=== PATIENT | female | born 1975 | race Caucasian/White ===

== ENCOUNTER → 2016-06-12 | Outpatient (CLI) | payer BC ==
[~2016-06-12] MED LIST: BCPILLS PO; OXYC-57 PO; PRENTAB26 PO
[2016-06-12 10:20] LABS: BASO % 0.4 %; BASO ABS # 0.02 K/uL (0-0.2); COMPLETE YES; EOS % 0.9 %; HEMATOCRIT 36.3 % (37-47); IG% 0.4 %; LYMPH % 27.8 %; LYMPH ABS # 1.47 K/uL (1.2-3.4); MEAN CELL VOLUME 87.7 fL (80-100); MEAN CORPUSCULAR HEMOGLOBIN 30.2 pg (25-34); MEAN CORPUSCULAR HGB CONC 34.4 g/dl (32-36); MEAN PLATELET VOLUME 10.3 fL (7.4-10.4); MONO % 9.1 %; NEUT % 61.4 %; PLATELET COUNT 301 K/uL (130-400); RED BLOOD COUNT 4.14 M/uL (4.2-5.4); WHITE BLOOD COUNT 5.29 K/uL (4.8-10.8)
[2016-06-12 10:52] LABS: INSULIN FASTING 4.1 mU/L (3-25); INSULIN LOG 0.6128
[2016-06-12 10:55] LABS: PROGESTERONE 0.29 ng/mL; PROLACTIN 13.65 ng/mL
[2016-06-12 12:02] LABS: THYROID STIMULATING HORMONE 1.91 uIu/ml (0.300-4.500)
[2016-06-12 13:29] LABS: CALCULATED INSULIN SENSITIVITY 0.389; GLUCOSE LOG 1.959
== END | disposition home or self-care (01) ==
LOC: C.LAB1850 08:56
PROVIDERS: ATTEND Obstetrics & Gynecology
DX: N93.9 Abnormal uterine and vaginal bleeding, unspecified (principal)

== ENCOUNTER → 2016-08-14 | Day surgery (SDC) | payer BC ==
[2016-07-30 08:19] VITALS: Ht 157.5 cm; Wt 55.9 kg
[~2016-08-14] VITALS: Ht 157.5 cm; Wt 55.9 kg
[~2016-08-14] MED LIST changes: +ATROPINE SULFATE 0.1 MG/ML 5ML SYR IV PRN; +DEXAMETHASONE SOD INJ 4 MG/ML VIAL ONE; +EpHEDrine SULFATE INJ 50 MG/ML AMP IV PRN; +FENTANYL CITRATE INJ 50 MCG/1 ML 2 ML VIAL IV PRN; +FENTANYL CITRATE INJ 50 MCG/1 ML 2 ML VIAL ONE; +IBUPROFEN 600 MG TAB PO PRN; +KETOROLAC TROMETHAMINE 30 MG/ML VIAL IV. PRN; +KETOROLAC TROMETHAMINE 30 MG/ML VIAL ONE; +LACTATED RINGER'S 1000ML 1,000 ML IV SCH; +LIDOCAINE HCL 2% 2 ML VIAL (20MG/ML) ONE; +METOCLOPRAMIDE HCL INJ 5 MG/ML 2 ML VIAL IV PRN; +MIDAZOLAM HCL 1 MG/ML 2ML VIAL ONE; +ONDANSETRON INJ 2 MG/ML 2 ML VIAL IV PRN; +ONDANSETRON INJ 2 MG/ML 2 ML VIAL ONE; +OXYCODONE/ACETAMINOPHEN 5-325 TAB PO PRN; -PRENTAB26 PO; +PROPOFOL IV EMULSION 10 MG/ML 20 ML VIAL IV ONE; +SCOPOLAMINE 1.5 MG TDSY TD ONE; +SODIUM CHLORIDE 0.9% 1000ML 1,000 ML IV SCH
--- NOTE | 2016-08-14 07:09 | History & Physical Bridge - [place] ---
H&P Re-Evaluation Bridge Note: I have examined the patient, reviewed the History & Physical and in the interval since the performance of the History & Physical I have noted the following changes of clinical significance: No changes noted
--- NOTE | 2016-08-14 07:53 | Discharge Instructions-SurgCtr ---
Discharge Instructions Date of Service Aug 14, 2016. Visit Reason for Visit: Abnormal Uterine Bleeding Discharge Discharge Diagnosis / Problem: AUB, Hysteroscopy / D&C Discharge Goals Goal(s): Specific goals Activity Recommendations Activity Limitations: resume your previous activity Anesthesia . Post Anesthesia Instructions: If you have had General Anesthesia or IV Sedation: * Do not drive today. * Resume driving when surgeon permits. * Do not make important decisions or sign legal documents today. * Call surgeon for: 1. Temperature elevations greater than 101 degrees F. 2. Uncontrollable pain. 3. Excessive bleeding. 4. Persistent nausea and vomiting. 5. Medication intolerance (nausea, vomiting or rash). * For nausea and vomiting use only clear liquids such as: tea, soda, bouillon until nausea subsides, then gradually increase diet as tolerated. * If you have any concerns or questions, call your surgeon's office. If physician is unavailable and it is an emergency, call 911 or go to the nearest emergency room. . Instructions / Follow-Up Instructions / Follow-Up ACTIVITY RECOMMENDATIONS: * Avoid tampons, douching, hot tubs, pools, and intercourse until bleeding has stopped. * May shower as usual. * No strenuous activity for 24-48 hours. After 24-48 hours, you may do anything you feel like doing (driving and sports are okay). SPECIAL CARE INSTRUCTIONS: Special Diet: * Mild nausea may occur in the immediate post-operative period. * Take clear liquids such as tea, cola or bouillon until all nausea has subsided; you may then resume your normal diet. Special Care: * Light bleeding and vaginal spotting can last from a few days to 3-4 weeks. Call your doctor if bleeding becomes heavier than the heaviest part of your period. * Check your temperature twice a day for one week. If it goes above 100.4 degrees Fahrenheit (38.0 Celsius), notify your doctor. * Call your doctor's office for an appointment for 6 weeks after your surgery. FOLLOW-UP VISIT: Call your doctor's office for an appointment for 6 weeks after your surgery. Diet Recommendations Home Diet: resume previous diet Pending Studies Studies pending at discharge: no Medical Emergencies . Who to Call and When: Medical Emergencies: If at any time you feel your situation is an emergency, please call 911 immediately. . Non-Emergent Contact Non-Emergency issues call your: Primary Care Provider . . "Provider Documentation" section prepared by Rebekah Stewart.
--- NOTE | 2016-08-14 09:28 | [facility] Post Operative Brief Note ---
Immediate Operative Summary Operative Date Aug 14, 2016. Pre-Operative Diagnosis Abnormal Uterine Bleeding Post-Operative Diagnosis Same Procedure(s) Performed Dilatation And Curettage, Hysteroscopy, Myomectomy Surgeon Dr. Stewart Power Distribution Engineer Surgeon(s) None Estimated Blood Loss 100 mL Findings Cavity with ostia seen bilaterally, filled by solitary round smooth mass which revealed a fibroid white fluffy material when dissected with Myosure. Cavity length 8cm. Specimens A. Myosure Chips Complication(s) None Disposition Recovery Room / PACU
--- NOTE | 2016-08-14 09:42 | OPERATIVE REPORT ---
DATE OF OPERATION: 08/14/2016 PREOPERATIVE DIAGNOSIS: Abnormal uterine bleeding and intracavitary mass. POSTOPERATIVE DIAGNOSIS: Same. PROCEDURE: D\T\C hysteroscopy and myomectomy. SURGEON: Dr. Stewart. ASSIST: None. ESTIMATED BLOOD LOSS: 100 cc. FINDINGS: Cavity with ostea seen bilaterally filled by solitary, round, smooth mass which revealed a fibrous white fluffy material when dissected with MyoSure. Cavity length 8 cm. DEFICIT: Nominally 1600 cc of normal saline; however, a large amount of saline solution spilled out of the system onto the operating room floor and soaked into the pant legs of the surgeon. Estimate total fluid loss into the patient truly around or less than 1 liter. SPECIMEN: MyoSure chips which we anticipate will be fibroid. COMPLICATIONS: None. DISPOSITION: Stable in the recovery room. DESCRIPTION: Becka Rosenbaum was placed on the table in the dorsal lithotomy position with candy cane stirrups. Prepped and draped in standard sterile fashion and a hard time out was taken prior to proceeding. Bimanual exam was done and the bladder was emptied of urine for 100 cc of clear yellow via straight catheterization. Specula were introduced. The anterior lip of the cervix was grasped with a single tooth tenaculum. The uterus sounded to 8 cm. The cervix was serially dilated to allow passage of the hysteroscope which was then introduced. The endometrial cavity was identified by seeing both ostea; however, the cavity was almost entirely occupied by a solitary large, round, smooth mass. Attempt was made to grasp this with a polyp forceps which was unsuccessful and the mass felt very firm and crunchy or calcified. The MyoSure was then set up and introduced to the cavity and used to gradually dissect away this mass which reveals a fluffy white internal texture likely consistent with a benign fibroid. Once the mass had been completely resected down to the smooth wall the attachment point of the mass having been clearly identified at this point as the fundal and anterior aspect to the interior uterus the cavity was restored to normal anatomy with ostea visualized bilaterally. All instruments were withdrawn and the patient was transferred to the recovery room in stable condition. I attest to the content of the Intraoperative Record and any orders documented therein. Any exceptio ns are noted below.
[2016-08-14 09:45] VITALS: TEMP 36.5
--- NOTE | 2016-08-14 09:52 | Anesthesia Progress Nt - [facility] ---
Anesthesia Post Op Note Date & Time Aug 14, 2016 at 09:52 Vital Signs Pain Intensity: 0 Vital Signs Past 12 Hours Date Time Temp Pulse Resp B/P Pulse Ox O2 Delivery O2 Flow Rate FiO2 08/14/16 09:36 112/74 08/14/16 09:34 63 13 08/14/16 09:34 63 13 100 08/14/16 09:33 71 18 99 08/14/16 09:33 71 18 08/14/16 09:32 36.5 70 16 112/70 99 Room Air 08/14/16 09:31 112/70 08/14/16 09:28 66 15 100 08/14/16 09:28 68 15 08/14/16 09:26 105/68 08/14/16 09:23 71 16 100 08/14/16 09:23 71 16 08/14/16 09:21 106/71 08/14/16 09:18 71 3 08/14/16 09:18 70 3 100 08/14/16 09:17 68 6 100 08/14/16 09:17 69 6 08/14/16 09:16 113/69 08/14/16 09:12 83 33 08/14/16 09:12 83 33 100 08/14/16 09:11 118/77 08/14/16 09:08 124/90 08/14/16 09:07 102 08/14/16 09:07 36.4 102 20 124/90 100 Diffusion Mask 6 08/14/16 09:07 102 100 08/14/16 07:05 74 133/84 97 Room Air 08/14/16 06:51 36.7 106 16 141/93 100 Room Air Notes Mental Status: alert / awake / arousable, participated in evaluation Pt Amnestic to Procedure: Yes Nausea / Vomiting: adequately controlled Pain: adequately controlled Airway Patency, RR, SpO2: stable & adequate BP & HR: stable & adequate Hydration State: stable & adequate Anesthetic Complications: no major complications apparent
[2016-08-14 10:12] VITALS: BP 105/69; PULSE 84; O2SAT 100
== END | disposition home or self-care (01) ==
LOC: X.SURG 06:41
PROVIDERS: ATTEND Obstetrics & Gynecology
DX: D25.9 Leiomyoma of uterus, unspecified (principal); G43.909 Migraine, unspecified, not intractable, without status migrainosus; Z88.2 Allergy status to sulfonamides; Z88.1 Allergy status to other antibiotic agents

== ENCOUNTER → 2017-01-23 | Outpatient (CLI) | payer BC ==
[~2017-01-23] MED LIST changes: -ATROPINE SULFATE 0.1 MG/ML 5ML SYR IV PRN; -DEXAMETHASONE SOD INJ 4 MG/ML VIAL ONE; -EpHEDrine SULFATE INJ 50 MG/ML AMP IV PRN; -FENTANYL CITRATE INJ 50 MCG/1 ML 2 ML VIAL IV PRN; -FENTANYL CITRATE INJ 50 MCG/1 ML 2 ML VIAL ONE; -IBUPROFEN 600 MG TAB PO PRN; -KETOROLAC TROMETHAMINE 30 MG/ML VIAL IV. PRN; -KETOROLAC TROMETHAMINE 30 MG/ML VIAL ONE; -LACTATED RINGER'S 1000ML 1,000 ML IV SCH; -LIDOCAINE HCL 2% 2 ML VIAL (20MG/ML) ONE; -METOCLOPRAMIDE HCL INJ 5 MG/ML 2 ML VIAL IV PRN; -MIDAZOLAM HCL 1 MG/ML 2ML VIAL ONE; -ONDANSETRON INJ 2 MG/ML 2 ML VIAL IV PRN; -ONDANSETRON INJ 2 MG/ML 2 ML VIAL ONE; -OXYCODONE/ACETAMINOPHEN 5-325 TAB PO PRN; -PROPOFOL IV EMULSION 10 MG/ML 20 ML VIAL IV ONE; -SCOPOLAMINE 1.5 MG TDSY TD ONE; -SODIUM CHLORIDE 0.9% 1000ML 1,000 ML IV SCH
--- NOTE | 2017-01-26 13:48 | MAMMOGRAPHY REPORT ---
BILATERAL DIGITAL SCREENING MAMMOGRAM TOMOSYNTHESIS WITH CAD: 01/23/2017 CLINICAL HISTORY: Routine screening. Patient has no complaints. TECHNIQUE: Breast tomosynthesis in addition to standard 2D mammography was performed. Current study was also evaluated with a Computer Aided Detection (CAD) system. COMPARISON: Comparison is made to exam dated: 01/10/2016 mammogram - [facility]. BREAST COMPOSITION: The tissue of both breasts is extremely dense, which lowers the sensitivity of m ammography. FINDINGS: No suspicious masses, calcifications, or areas of architectural distortion are noted in ei ther breast. There has been no significant interval change compared to prior exams. IMPRESSION: ACR BI-RADS CATEGORY 1: NEGATIVE There is no mammographic evidence of malignancy. A 1 year screening mammogram is recommended. The pa tient will receive written notification of the results. Approximately 10% of breast cancers are not detected with mammography. A negative mammographic report should not delay biopsy if a clinically suggestive mass is present. Crystal Leach M.D. ah/:01/23/2017 16:26:43 Multimedia Authoring Specialist: Robyn AZAR(Demetria)(Dawna)([place]), [facility] letter sent: Normal 1/2 BI-RADS Code: ACR BI-RADS Category 1: Negative
== END | disposition home or self-care (01) ==
LOC: C.MAMM 14:08
PROVIDERS: ATTEND Obstetrics & Gynecology
DX: Z12.31 Encounter for screening mammogram for malignant neoplasm of breast (principal)

== ENCOUNTER 2017-02-13 08:53 | Observation (INO) | payer BC ==
[2017-01-20 13:01] VITALS: BMI 22.0
--- NOTE | 2017-01-20 13:26 | PAT Medication Instructions ---
Service Date Jan 20, 2017. Current Home Medication List Control Pills ( Control Pills), 1 TAB PO QAM Medication Instructions For Your Scheduled Surgery - Take the following medications the morning of surgery with a sip of water: Control Pills ( Control Pills), 1 TAB PO QAM If you have any questions please call us at [phone] or [phone] or [phone]
[~2017-02-13] VITALS: Ht 157.5 cm; Wt 55.5 kg
[2017-02-13] VITALS (7 sets, daily range): BP systolic 114–154; BP diastolic 68–83; PULSE 69–101; TEMP 36.3–36.9; O2SAT 98–100; Ht 157.5 cm; Wt 55.5 kg
[~2017-02-13 08:53] MED LIST changes: +CEFAZOLIN 2000 MG/60 ML D5W 50 ML IV SCH; +LACTATED RINGER'S 1000ML 1,000 ML IV SCH; -OXYC-57 PO; +SCOPOLAMINE 1.5 MG TDSY TD SCH
[2017-02-13] MEDS ORDERED: MIDAZOLAM HCL 1 MG/ML 2ML VIAL ONE (09:24)
[2017-02-13] MEDS ORDERED: HYDROmorphone INJ 2 MG/ML SYR/VIAL ONE (09:24)
[2017-02-13] MEDS ORDERED: FENTANYL CITRATE INJ 50 MCG/1 ML 2 ML VIAL ONE (09:24)
[2017-02-13] MEDS ORDERED: ATROPINE SULFATE 0.1 MG/ML 5ML SYR IV PRN (10:30)
[2017-02-13] MEDS ORDERED: PROMETHAZINE HCL INJ 12.5 MG in SODIUM CHLORIDE 0.9% 50ML 50 ML IV PRN ×2 (10:30→12:45)
[2017-02-13] MEDS ORDERED: EpHEDrine SULFATE INJ 50 MG/ML AMP IV PRN (10:30)
[2017-02-13] MEDS ORDERED: HYDROmorphone INJ 1 MG/ML SYR IV PRN (10:30)
[2017-02-13] MEDS ORDERED: ONDANSETRON INJ 2 MG/ML 2 ML VIAL IV PRN ×2 (10:30→12:45)
[2017-02-13] MEDS ORDERED: METHYLENE BLUE 0.5% 10 ML VIAL ONE (10:43)
[2017-02-13] MEDS ORDERED: DEXAMETHASONE SOD INJ 4 MG/ML VIAL ONE (12:30)
[2017-02-13] MEDS ORDERED: DiphenhydrAMINE HCL 50 MG/ML VIAL ONE (12:30)
[2017-02-13] MEDS ORDERED: ONDANSETRON INJ 2 MG/ML 2 ML VIAL ONE (12:30)
[2017-02-13] MEDS ORDERED: METOCLOPRAMIDE HCL INJ 5 MG/ML 2 ML VIAL ONE (12:30)
[2017-02-13] MEDS ORDERED: GLYCOPYRROLATE INJ 0.2 MG/ML VIAL ONE (12:30)
[2017-02-13] MEDS ORDERED: PROPOFOL IV EMULSION 10 MG/ML 20 ML VIAL IV ONE (12:30)
[2017-02-13] MEDS ORDERED: LARYING-O-JET KIT (LTA) ONE ×2 (12:30)
[2017-02-13] MEDS ORDERED: ROCURONIUM BROMIDE 10 MG/ML 5 ML VIAL IV ONE (12:30)
[2017-02-13] MEDS ORDERED: LIDOCAINE HCL 2% 2 ML VIAL (20MG/ML) ONE (12:30)
[2017-02-13] MEDS ORDERED: NEOSTIGMINE METHYLSULFATE 5 MG/5 ML SYR ONE (12:30)
[2017-02-13] MEDS ORDERED: LACTATED RINGER'S 1000ML 1,000 ML IV SCH (12:44)
--- NOTE | 2017-02-13 12:44 | [facility] Post Operative Brief Note ---
Immediate Operative Summary Operative Date Feb 13, 2017. Pre-Operative Diagnosis Menorrhagia, fibroids Post-Operative Diagnosis Same as preop Procedure(s) Performed Total Laparoscopic Hysterectomy Bilateral Salpingectomy Robot Asisst; Cystoscopy Surgeon Dr. Stewart Kraft Digester Operator Surgeon(s) None Estimated Blood Loss 20 ML Findings Uterus distorted by multiple 2-3cm fibroids, tubes and ovaries normal bilaterally Specimens A. Cervix, Uterus, Bilateral Fallopian Tubes Complication(s) None Disposition Recovery Room / PACU
[2017-02-13] MEDS ORDERED: PROMETHAZINE HCL INJ 25 MG in SODIUM CHLORIDE 0.9% 50ML 50 ML IV PRN (12:45)
[2017-02-13] MEDS ORDERED: MEPERIDINE HCL 50 MG/ML CARP IV PRN ×2 (12:45)
[2017-02-13] MEDS ORDERED: IBUPROFEN 600 MG TAB PO PRN (12:45)
[2017-02-13] MEDS ORDERED: OXYCODONE/ACETAMINOPHEN 5-325 TAB PO PRN ×2 (12:45)
[2017-02-13] MEDS ORDERED: KETOROLAC TROMETHAMINE 30 MG/ML VIAL IV. PRN (12:45)
[2017-02-13] MEDS ORDERED: ACETAMINOPHEN 325 MG TAB PO PRN (12:45)
[2017-02-13] MEDS ORDERED: OXYC-57 PO (12:47)
--- NOTE | 2017-02-13 12:48 | Discharge Instructions ---
Discharge Instructions Date of Service Feb 13, 2017. Visit Reason for Visit: Menorrhagia, Fibroids Discharge Discharge Diagnosis / Problem: Hysterectomy Discharge Goals Goal(s): Specific goals Activity Recommendations Activity Limitations: per Instructions/Follow-up section Anesthesia . Post Anesthesia Instructions: If you have had General Anesthesia or IV Sedation: * Do not drive today. * Resume driving when surgeon permits. * Do not make important decisions or sign legal documents today. * Call surgeon for: 1. Temperature elevations greater than 101 degrees F. 2. Uncontrollable pain. 3. Excessive bleeding. 4. Persistent nausea and vomiting. 5. Medication intolerance (nausea, vomiting or rash). * For nausea and vomiting use only clear liquids such as: tea, soda, bouillon until nausea subsides, then gradually increase diet as tolerated. * If you have any concerns or questions, call your surgeon's office. If physician is unavailable and it is an emergency, call 911 or go to the nearest emergency room. . Instructions / Follow-Up Instructions / Follow-Up POST OPERATIVE: BOWEL FUNCTION/MEDICATIONS: 1. Constipation pain and discomfort are the most common complaints 5-7 days after surgery. Points 2-6 address the things that can help. 2. Chewing gum can help stimulate the gut and help improve digestion and motility. 3. Milk of Magnesia 1-2 times per day until return of bowel function. 4. Colace is a stool softener that helps. Taking this 2-3 times per day until bowel function returns to normal is highly recommended. 5. Dulcolax is a laxative that may be used if several days have passed without a bowel movement. Alternatively Miralax may be used daily instead. 6. Drink plenty of fluids as this will also reduce constipation. 7. Narcotic pain medications will be prescribed by your physician. They are safe to use and we encourage you to use them. If you are not allergic, ibuprofen will also be prescribed. Many patients will be able to transition off of the narcotic medications to ibuprofen by postoperative day 3. ACTIVITY RECOMMENDATIONS: 1. Get plenty of rest and listen to your body. If you are tired, take a nap. 2. You may shower, but do not take a tub bath until you see your doctor at the 2 week post operative visit. 3. Absolutely NO intercourse and nothing in the vagina until you are examined by your doctor at the 6 week visit. At that visit it will be determined when such activities can be resumed. This can range from 6-12 weeks after your surgery depending on healing time. 4. The main physical activity in the first week should be walking. By the second week you can slowly increase activity. There are no limits on walking up and down stairs. 5. Do not lift more than 5-10 lbs for 4 weeks. Remember the "one-handed rule", i.e. if you can lift something with only one hand it's likely okay. 6. Minimize warp splitter like vacuuming and exercising for 4 weeks. "Overdoing it" can lead to incisions not healing, pain and vaginal bleeding , so again, listen to your body. 7. Driving can be resumed when you feel able. Do not drive within 24 hours of taking a narcotic medication. EXPECTATIONS: 1. Vaginal spotting, bleeding and discharge are common after surgery. There may even be an odor to the discharge which is often related to sutures used in the vagina. If you experience heavy vaginal bleeding, call the office number day or night [phone]. 2. Bladder discomfort is common after surgery from the catheter. This usually resolves in 1-2 weeks. 3. By the end of the 3rd or 4th week you should be feeling much better. It may take up to 6 weeks for your energy levels to return to normal. 4. Narcotic medications have side effects such as: dizziness, headache, nausea and/or vomiting. If you suspect your pain medication is causing problems, call our office and we may be able to prescribe an alternate medication. 5. The skin incisions are often covered with a liquid bandage. This will gradually peel off over time. CALL THE OFFICE IF YOU HAVE ANY OF THE FOLLOWIN. Temperature of 101 degrees or higher. 2. Severe abdominal or pelvic pain not relieved by pain medication. 3. Persistent nausea or vomiting. 4. Increased pain with urination or difficulty urinating. 5. Bright red bleeding that soaks more than 1 pad per hour. CONTACT PHONE NUMBERS: Main Office: [phone] Surgical Nurse: [phone] extension [phone] FOLLOW-UP: Post-Operative Appointments: * Individual instructions will have been given about the timing of your first examination, but this is usually at the end of the second week home. * You will need to call the office at soon after discharge to make the appointment for your post-op check-up if it has not already been scheduled. * Additional information regarding activity, sexual intercourse and when to return to work will be given at this appointment. WE WISH YOU A SPEEDY RECOVERY! Diet Recommendations Recommended Home Diet: resume previous diet Procedures Procedures Performed: Total Laparoscopic Hysterectomy Bilateral Salpingectomy Robot Asisst; Cystoscopy Pending Studies Studies pending at discharge: no Medical Emergencies . Who to Call and When: Medical Emergencies: If at any time you feel your situation is an emergency, please call 911 immediately. . Non-Emergent Contact Non-Emergency issues call your: Primary Care Provider . . "Provider Documentation" section prepared by Rebekah Stewart. . [place] Drug Monitoring Program Search Results: patient reviewed within database, no issues identified
[2017-02-13] MEDS: FENTANYL CITRATE INJ 50 MCG/1 ML 2 ML VIAL IV PRN ×2 (13:07→13:13)
[2017-02-13] MEDS ORDERED: IV FLUIDS COMPLETED PRN (13:30)
--- NOTE | 2017-02-13 13:37 | Anesthesiology Progress Note ---
Anesthesia Post Op Note Date & Time Feb 13, 2017 at 13:37 Vital Signs Pain Intensity: 2 Vital Signs Past 12 Hours Date Time Temp Pulse Resp B/P (MAP) Pulse Ox O2 Delivery O2 Flow Rate FiO2 02/13/17 13:35 36.2 65 14 123/74 100 Nasal Cannula 2 02/13/17 13:25 90 13 126/71 100 Nasal Cannula 2 02/13/17 13:15 84 15 115/61 100 Nasal Cannula 2 02/13/17 13:05 59 17 111/63 100 Oxymask 10 02/13/17 12:55 62 16 109/65 100 Oxymask 10 02/13/17 12:47 36.5 85 12 109/62 100 Oxymask 10 02/13/17 09:21 36.9 101 18 154/82 (106) 100 Room Air Notes Mental Status: alert / awake / arousable, participated in evaluation Pt Amnestic to Procedure: Yes Nausea / Vomiting: adequately controlled Pain: adequately controlled Airway Patency, RR, SpO2: stable & adequate BP & HR: stable & adequate Hydration State: stable & adequate Anesthetic Complications: no major complications apparent
--- NOTE | 2017-02-13 14:30 | OPERATIVE REPORT ---
DATE OF OPERATION: 02/13/2017 PREOPERATIVE DIAGNOSES: Menorrhagia and known fibroids. POSTOPERATIVE DIAGNOSES: Same. PROCEDURES: Total laparoscopic hysterectomy with bilateral salpingectomy and robotic assistance and cystoscopy. SURGEON: Dr. Rebekah Stewart. SUPERVISOR CONTACT AND SERVICE CLERKS: None. ESTIMATED BLOOD LOSS: 20 mL. FINDINGS: Uterus distorted by multiple 2-3 cm fibroids. Tubes and ovaries normal bilaterally. SPECIMENS: Cervix, uterus, and bilateral fallopian tubes. COMPLICATIONS: None. DISPOSITION: Stable to the recovery room. DESCRIPTION OF PROCEDURE: Becka is a 41-year-old, known to my care for menorrhagia that has been refractory to multiple hysteroscopic resections of intracavitary fibroids. After significant counseling in the office on multiple visits to consider alternatives and discussed the patient's goals, she has ultimately decided on definitive management via hysterectomy. She was brought to the operating room, placed on the table in the dorsal lithotomy position, prepped and draped in standard sterile fashion and a hard time-out was taken prior to proceeding. The [place] and [employer] uterine manipulators were placed in the usual manner. Entry was then made through the umbilicus in an optical manner without complications. The abdomen was insufflated. The patient was placed in Trendelenburg. Right and left lower quadrant ports were placed under direct visualization. Once the robot was docked, surgery began by dissection of each fallopian tube off the mesosalpinx. The uteroovarian ligaments were ligated and divided. The round ligaments were ligated and divided. The bladder flap was created. The uterine arteries were skeletonized. Each uterine artery was then ligated and divided and colpotomy was completed circumferentially. The cervix, uterus and fallopian tubes were delivered per vagina. The vaginal cuff was then closed using a V-Loc suture. At the completion of closure, hemostasis was seen even as the pneumo was allowed to escape the abdomen and the pressure was decreased. Cystoscopy was then completed with administration of methylene blue dye IV. Good blue stained jets of urine were seen from each ureteral orifice and the dome of the bladder was seen to be intact and without injury. Once the cystoscopy was completed, the bladder was drained. Attention was turned to the abdomen, where the ports sites were closed using a UR-6 Vicryl at the umbilicus, 4-0 Monocryl at the skin in all 3 incisions and Dermabond dressing was then applied. The patient was then transferred to recovery in stable condition. I attest to the content of the Intraoperative Record and any orders documented therein. Any exception s are noted below.
[2017-02-13] MEDS ORDERED: CHECK SCOPOLAMINE PATCH PLACEMENT SCH (16:00)
[2017-02-13 16:24] LABS: HEMATOCRIT 38.5 % (37-47)
[2017-02-13] MEDS ORDERED: DOCUSATE SODIUM 100 MG CAP PO SCH (21:00)
--- NOTE | 2017-02-25 08:48 | Discharge Summary ---
Discharge Summary Date of Service Feb 25, 2017. Discharge Summary Admission Date: Feb 13, 2017 at 09:12 Discharge Date: Feb 13, 2017 Discharge Disposition: Home Principal Diagnosis: Hysterectomy Immunizations: Have You Had Influenza Vaccine: N/A History of Tetanus Vaccine?: No Medication Reconciliation New Medications: Oxycodone/Acetaminophen 5MG/325MG (Percocet 5MG/325MG) Tab 1 TABLET PO Q4H PRN for Pain, #15 TAB Discontinued Medications: Control Pills ( Control Pills) Tab 1 TAB PO QAM, TAB Hospital Course Total Time Spent: Less than 30 minutes This includes examination of the patient, discharge planning, medication reconciliation, and communication with other providers. Discharge Instructions Please refer to the electronic Patient Visit Report (Discharge Instructions) for additional information.
== END 2017-02-13 19:50 | disposition home or self-care (01) ==
LOC: C.ACU 08:53 → C.MS4N 09:12 → ENRESERV 13:53
PROVIDERS: ADMIT Obstetrics & Gynecology; ATTEND Obstetrics & Gynecology
DX: D25.9 Leiomyoma of uterus, unspecified (principal); N92.1 Excessive and frequent menstruation with irregular cycle
CPT/HCPCS: 58571; S2900